=== PATIENT | female | born 1970 | race Hispanic/Latino ===

== ENCOUNTER → 2023-11-11 | Outpatient (CLI) | payer BC ==
[2023-11-11 15:33] LABS: BODY FLUID RBC 11741 /cu. mm.; BODY FLUID WBC 10867 /cu. mm.
[2023-11-11 15:55] LABS: APPEARANCE BODY FLUID CLOUDY (CLEAR); COLOR,BODY FLUID ORANGE (LT YELLOW); SPECIMENTYPE,BODY FLUID SYNOVIAL
[2023-11-11 15:56] LABS: TOTAL VOLUME,BODY FLUID 25 mL
[2023-11-11 17:30] LABS: BF LYMPHOCYTE 1 %; BF MONOCYTE 1 %; BF TOTAL CELLS COUNTED 100
[2023-11-12 02:43] LABS: CRYSTALS, SYNOVIAL FLUID None Seen
== END | disposition home or self-care (01) ==
LOC: LAB 12:03
PROVIDERS: ATTEND Student in an Organized Health Care Education/Training Program
DX: M25.461 Effusion, right knee (principal)
CPT/HCPCS: 87071; 87076; 87205; 89051; 89060

== ENCOUNTER 2024-11-15 06:52 | Day surgery (SDC) | payer BC ==
[~2024-11-15] VITALS: Ht 147.3 cm; Wt 69.4 kg
[2024-11-15] VITALS (12 sets, daily range): BP systolic 98–117; BP diastolic 57–74; PULSE 61–88; RESP 12–16; TEMP 97.4–97.5
[~2024-11-15 06:52] MED LIST: FAMO40TA7 PO; LOSA25TA41 PO; METF-444 PO; PLEC3TAB2 PO; ROSU10TA72 PO; TIRZ12.5 SQ
[2024-11-15] MEDS: 0.9%NACL 1000ML 1,000 ML IV ONE (07:41)
[2024-11-15] MEDS ORDERED: proPOFol 10 MG/ML 20ML VIAL IV ONE (08:09)
[2024-11-15] MEDS ORDERED: LIDOCAINE PF 100MG/5ML (2%) SYRINGE 5ML ONE (08:09)
== END 2024-11-15 09:55 | disposition home or self-care (01) ==
LOC: DAH 06:52 → ENDO 06:52
PROVIDERS: ATTEND Internal Medicine Gastroenterology
DX: Z12.11 Encounter for screening for malignant neoplasm of colon (principal); K63.5 Polyp of colon; K80.50 Calculus of bile duct without cholangitis or cholecystitis without obstruction; K21.9 Gastro-esophageal reflux disease without esophagitis; R93.5 Abnormal findings on diagnostic imaging of other abdominal regions, including retroperitoneum; R93.2 Abnormal findings on diagnostic imaging of liver and biliary tract; I10 Essential (primary) hypertension; R10.13 Epigastric pain; E11.9 Type 2 diabetes mellitus without complications; E78.5 Hyperlipidemia, unspecified; F41.9 Anxiety disorder, unspecified; M19.90 Unspecified osteoarthritis, unspecified site; Z98.890 Other specified postprocedural states; Z90.710 Acquired absence of both cervix and uterus; Z79.899 Other long term (current) drug therapy; Z79.84 Long term (current) use of oral hypoglycemic drugs
CPT/HCPCS: 43259; 82948 ×2; 45380; J7030; J2003; J2704; A4620; A4215; 43237; J3490

== ENCOUNTER 2024-11-16 07:57 | Day surgery (SDC) | payer BC ==
[~2024-11-16] VITALS: Ht 147.3 cm; Wt 69.4 kg
[2024-11-16] VITALS (14 sets, daily range): BP systolic 106–168; BP diastolic 66–89; PULSE 57–85; RESP 15–18; TEMP 97.4–97.9
[2024-11-16] MEDS: 0.9%NACL 1000ML 1,000 ML IV ONE (08:18)
[2024-11-16] MEDS ORDERED: SUCCINYLCHOLINE CHLORIDE 20 MG/ML 10 ML VIAL ONE (08:51)
[2024-11-16] MEDS ORDERED: LIDOCAINE HCL 1% 20 ML VIAL ONE (08:52)
[2024-11-16] MEDS ORDERED: proPOFol 10 MG/ML 20ML VIAL IV ONE (08:52)
[2024-11-16] MEDS ORDERED: ondanSETRON 4MG INJ ONE (08:52)
[2024-11-16] MEDS: INDOMETHACIN 100 MG SUPP.RECT RC ONE (09:10)
[2024-11-16] MEDS ORDERED: FENTanyl CITRate PF 50 MCG/1 ML 2ML VIAL ONE (09:16)
[2024-11-16] MEDS ORDERED: IOHEXOL-350 50ML VIAL IV ONE (09:32)
--- NOTE | 2024-11-16 17:19 | HMCIMG ---
ERCP BILI/PANC DUCT REASON: CHOLEDOCHOLITHIASIS. COMPARISON: None TECHNIQUE: ERCP was performed. FINDINGS: Please see procedure report by referring physician. IMPRESSION: ERCP.
== END 2024-11-16 10:50 | disposition home or self-care (01) ==
LOC: ENDO 07:57 → DAH 07:57 → ENDO 10:50
PROVIDERS: ATTEND Internal Medicine Gastroenterology
DX: R93.2 Abnormal findings on diagnostic imaging of liver and biliary tract (principal); K80.50 Calculus of bile duct without cholangitis or cholecystitis without obstruction; I10 Essential (primary) hypertension; E11.9 Type 2 diabetes mellitus without complications; F41.9 Anxiety disorder, unspecified; R10.13 Epigastric pain; M19.90 Unspecified osteoarthritis, unspecified site; E78.5 Hyperlipidemia, unspecified; Z90.49 Acquired absence of other specified parts of digestive tract; Z90.710 Acquired absence of both cervix and uterus; Z79.84 Long term (current) use of oral hypoglycemic drugs; Z79.899 Other long term (current) drug therapy
CPT/HCPCS: 43274; 82948 ×2; 43264; 74328; J3010; J0330; J7030; J2704; J2405; Q9967; A4620; C1769 ×2; A4215; A4657; A7002; C1875; C1773; 43262; 74330; J3490